=== PATIENT | female | born 1965 | race Caucasian/White ===

== ENCOUNTER 2021-02-13 20:06 | Emergency (ER) | payer BC ==
[~2021-02-13] VITALS: Ht 154.9 cm; Wt 104.0 kg
[2021-02-13 20:41] VITALS: BP 187/80
--- NOTE | 2021-02-13 20:59 | PHYS DOC ---
Past History Past Surgical History: No Surgical History Alcohol Use: None Adult General Chief Complaint Chief Complaint: LACERATION/AVULSION HPI HPI Patient is a 56-year-old female who presents to the emergency department with a chief complaint of laceration to the bottom of her left foot, caused by a piece of glass from a broken Zuffle ornament. Denies any other injuries. States she is not up-to-date on her tetanus vaccinations. Review of Systems Review of Systems Review of systems otherwise unremarkable except noted in HPI Allergies Allergies Allergies Coded Allergies Type Severity Reaction Last Updated Verified No Known Drug Allergies 02/13/21 No Physical Exam Physical Exam Constitutional: Well developed, well nourished, no acute distress, non-toxic appearance. [] Extremities: Patient has a tiny, what appears to be a puncture wound on the sole of her foot just proximal to the third toe, bleeding controlled, neurovascular exam intact, no foreign bodies appreciated Neurologic: Alert and oriented X 3, normal motor function, normal sensory function, no focal deficits noted. [] Psychologic: Affect normal, judgement normal, mood normal. [] Current Patient Data Vital Signs Vital Signs Date Time Temp Pulse Resp B/P (MAP) Pulse Ox O2 Delivery O2 Flow Rate FiO2 02/13/21 20:41 98.2 87 16 187/80 (115) 97 EKG EKG [] Radiology/Procedures Radiology/Procedures [] Heart Score C/O Chest Pain: No Risk Factors: Risk Factors: DM, Current or recent (<one month) smoker, HTN, HLP, family history of CAD, obesity. Risk Scores: Risk Factors: DM, Current or recent (<one month) smoker, HTN, HLP, family history of CAD, obesity. Course & Med Decision Making Course & Med Decision Making Patient is a 56-year-old female who presents with laceration to the sole of the foot after stepping on a Eva ornament Vital signs not concerning. Physical exam noted above. Started on antibiotics. Cleaned the wound. Given wound care instructions and materials. Discussed symptom management at home. Advised to follow-up with primary care physician as needed. Advised to come back with new or concerning symptoms. Patient grateful, verbalized understanding and agreed with plan of discharge. Dragon Disclaimer Dragon Disclaimer This electronic medical record was generated, in whole or in part, using a voice recognition dictation system. Departure Departure: Impression: Primary Impression: Laceration Disposition: HOME / SELF CARE / HOMELESS Condition: GOOD Referrals: LINDSEY CALVILLO MD (PCP) Patient Instructions: Wound Care, [id number] Additional Instructions: Thank you for coming into the emergency department tonight and allowing us to take care of you. Please read the attached information carefully to go back over some of the things we discussed. Please keep your wound clean, dry and bandaged as we discussed and demonstrated. Please follow-up with your primary care as needed. Please come back with new or concerning symptoms as discussed. Please take all your antibiotics as prescribed. Scripts Cephalexin (KEFLEX) 500 Mg Capsule 1 CAP PO BID for wound for 5 Days, #10 CAP Prov: HOWARD DE LA TORRE MD 02/13/21 HOWARD DE LA TORRE MD Feb 13, 2021 20:59
[2021-02-13] MEDS ORDERED: CEPH500C PO (21:06)
[2021-02-13] MEDS ORDERED: CEPHALEXIN 250 MG CAPSULE PO ONE (21:30)
--- NOTE | 2021-02-13 21:35 | RAD ---
EXAM: 2 views left foot DATE: 02/13/2021 9:03 PM INDICATION: Reason: glass in sole under 3rd toe / Spl. Instructions: / History: . COMPARISON: No Prior FINDINGS: Midfoot degenerative changes are seen. No evidence of acute fracture or dislocation. Forefoot and midfoot soft tissue swelling. No definite retained radiopaque foreign body. IMPRESSION: No evidence of acute fracture or dislocation. No definite retained radiopaque foreign body is identif ied although nonradiopaque foreign body may be occult. Electronically signed by: Guillermo May MD (02/13/2021 9:32 PM) [facility]
[2021-02-13] MEDS ORDERED: DIPH,PERTUSS(ACELL),TET VAC/PF 0.5 ML SYRINGE. VAX IM ONE (22:00)
== END 2021-02-13 21:47 | disposition home or self-care (01) ==
LOC: ER 20:06
DX: S91.312A Laceration without foreign body, left foot, initial encounter (principal); W25.XXXA Contact with sharp glass, initial encounter; Y93.89 Activity, other specified; Y92.89 Other specified places as the place of occurrence of the external cause; Y99.8 Other external cause status
CPT/HCPCS: 73620; 90471; 90715; 99283